=== PATIENT | female | born 1990 | race Caucasian/White ===

== ENCOUNTER 2018-07-18 18:49 | Emergency (ER) | payer SELFPAY ==
[~2018-07-18] VITALS: Ht 172.7 cm; Wt 69.3 kg
[2018-07-18 19:03] VITALS: BP 116/71
[2018-07-18] MEDS ORDERED: L.E.T SOLUTION TP ONE ×2 (19:22→19:30)
[2018-07-18] MEDS ORDERED: ONDANSETRON ODT 4 MG ONE (19:22)
[2018-07-18] MEDS ORDERED: LIDOCAINE-MPF 1%, 5ML INFIL ONE (19:30)
[2018-07-18] MEDS ORDERED: ONDANSETRON ODT 4 MG PO ONE (19:30)
[2018-07-18] MEDS ORDERED: LIDOCAINE-MPF 1%, 5ML ONE (20:03)
--- NOTE | 2018-07-18 20:20 | NUR ---
pt has lac to head, entertainment center to head that caused lack. Pt denies loc. About 2 inch lac. to be stapled.
--- NOTE | 2018-07-18 20:55 | NUR ---
Patient/Caregiver given discharge instructions and they have confirmed that they understand the instructions. Patient ambulatory with steady gait.
== END 2018-07-18 20:57 | disposition home or self-care (01) ==
LOC: ED 20:51
DX: S06.0X0A Concussion without loss of consciousness, initial encounter (principal); S01.01XA Laceration without foreign body of scalp, initial encounter; W19.XXXA Unspecified fall, initial encounter; Y93.89 Activity, other specified; Y92.009 Unspecified place in unspecified non-institutional (private) residence as the place of occurrence of the external cause; Y99.8 Other external cause status
CPT/HCPCS: 12032; 70450; 99284; Q0162

== ENCOUNTER 2018-07-29 13:44 | Emergency (ER) | payer SELFPAY ==
[~2018-07-29] VITALS: Ht 172.7 cm; Wt 71.9 kg
[2018-07-29 14:01] VITALS: BP 108/73
--- NOTE | 2018-07-29 14:15 | NUR ---
Patient/Caregiver given discharge instructions and they have confirmed that they understand the instructions. Patient ambulatory with steady gait.
== END 2018-07-29 14:19 | disposition home or self-care (01) ==
LOC: ED 13:55
DX: S01.01XD Laceration without foreign body of scalp, subsequent encounter (principal); X58.XXXD Exposure to other specified factors, subsequent encounter
CPT/HCPCS: 99281